=== PATIENT | female | born 1930 | race Caucasian/White ===

== ENCOUNTER 2016-08-01 14:25 | Emergency (ER) | payer OTHER, BC ==
[~2016-08-01] VITALS: Ht 149.9 cm; Wt 51.3 kg
[~2016-08-01 14:25] MED LIST: ASPIR-LOW81 M1 PO; CALCIUM500 M3 NG; FISH OIL 1,0001 EAC7 PO; MULTIPLE VITAM1 EACH PO; TRAMADOL HCL50 MG PO
[2016-08-01 17:03] VITALS: BP 137/75
== END 2016-08-01 17:03 | disposition home or self-care (01) ==
LOC: EME 14:25
DX: S63.502A Unspecified sprain of left wrist, initial encounter (principal); W18.30XA Fall on same level, unspecified, initial encounter; Z88.6 Allergy status to analgesic agent
CPT/HCPCS: 73110; 99281; 99284